=== PATIENT | female | born 1990 | race Caucasian/White ===

== ENCOUNTER 2019-03-03 18:33 | Emergency (ER) | payer BC ==
[~2019-03-03] VITALS: Ht 172.7 cm; Wt 59.0 kg
[2019-03-03 19:17] VITALS: BP 132/88
[2019-03-03] MEDS ORDERED: Methocarbamol 750mg tab ORAL ONE (19:45)
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
[2019-03-03] MEDS ORDERED: NAPROXEN500 M2 ORAL (21:04)
[2019-03-03] MEDS ORDERED: CYCLOBENZAPRINE10 MG ORAL (21:04)
[2019-03-03 21:09] VITALS: BP 129/78
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
== END 2019-03-03 22:30 | disposition home or self-care (01) ==
LOC: EMR 22:30
DX: R51 Headache (principal); M54.2 Cervicalgia; M54.9 Dorsalgia, unspecified
CPT/HCPCS: 70450; 72125; 81025; 99284